=== PATIENT | male | born 1995 ===

== ENCOUNTER 2017-11-05 13:07 | Emergency (ER) | payer OTHER, BC ==
[2017-11-05 13:36] VITALS: O2SAT 99
--- NOTE | 2017-11-05 14:53 | ED PDOC ---
HPI: Back Time Seen by Provider: 11/05/17 13:36 Chief Complaint (Nursing): Back Pain Chief Complaint (Provider): Back Pain History Per: Patient History/Exam Limitations: no limitations Onset/Duration Of Symptoms: Hrs Quality Of Discomfort: "Pain" Additional Complaint(s): 22 y/o male with a history of back injuries presents to the ED with upper back pain. 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 He felt a sudden onset of pain to his back. Patient denies taking any medications prior to arrival. Denies any fever, chest pain, abdominal pain, radiation, weakness, saddle anesthesia, incontinence, falls, or trauma. PMD: none provided Past Medical History Reviewed: Historical Data, Nursing Documentation, Vital Signs Vital Signs: Last Vital Signs Temp 100.1 F H 11/05/17 13:33 Pulse 111 H 11/05/17 13:33 Resp 18 11/05/17 13:33 BP 125/72 11/05/17 13:33 Pulse Ox 99 11/05/17 13:33 - Medical History PMH: No Chronic Diseases - Surgical History Surgical History: No Surg Hx - Family History Family History: States: No Known Family Hx - Social History Current smoker - smoking cessation education provided: No Ex-Smoker (has not smoked in the last 12 months): No Alcohol: None Drugs: Denies - Home Medications Home Medications: Ambulatory Orders Medication Instructions Recorded Cyclobenzaprine [Cyclobenzaprine 10 mg PO Q8 PRN #12 tab 11/05/17 HCl] Meloxicam [Mobic] 15 mg PO DAILY PRN #10 tab 11/05/17 - Allergies Allergies/Adverse Reactions: Allergies Allergy/AdvReac Type Severity Reaction Status Date / Time No Known Allergies Allergy Verified 11/05/17 13:33 Review of Systems ROS Statement: Except As Marked, All Systems Reviewed And Found Negative Constitutional: Negative for: Fever, Weakness, Other (falls or trauma) Cardiovascular: Negative for: Chest Pain Gastrointestinal: Positive for: Other. Negative for: Abdominal Pain Genitourinary Male: Negative for: Incontinence Musculoskeletal: Positive for: Back Pain. Negative for: Other (radiation to back) Neurological: Negative for: Other (saddle anesthesia) Physical Exam - Reviewed Nursing Documentation Reviewed: Yes Vital Signs Reviewed: Yes - Physical Exam Comments: GENERAL APPEARANCE: Patient is awake, alert, oriented x 3, in no acute distress. Resting comfortably talking on cell phone. mbulatory in ed SKIN: Warm, dry; (-) cyanosis. EYES: (-) conjunctival pallor. ENMT: Mucous membranes moist. NECK: (-) tenderness, (-) stiffness, (-) lymphadenopathy. CHEST AND RESPIRATORY: (-) rales, (-) rhonchi, (-) wheezes; breath sounds equal bilaterally. HEART AND CARDIOVASCULAR: (-) irregularity; (-) murmur, (-) gallop. ABDOMEN AND GI: Soft; (-) tenderness; (-) palpable mass. BACK: (+) midline tenderness to the proximal thoracic spine an distal spine (- ) direct bony tenderness, (-) deformity (-) palpable bone in defect. (-) relying skin changes EXTREMITIES: (+) equal entry level financial analyst strength, (+) normal gait, (-) deformity. Distal pulses good bilaterally. NEURO AND PSYCH: Mental status as above. Intact sensation bilaterally; normal strength in extension of the knees, plantar and dorsiflexion of the toes. DTRs symmetric. - ECG O2 Sat by Pulse Oximetry: 99 (RA) Pulse Ox Interpretation: Normal Medical Decision Making Medical Decision Making: Time: 13:33 Impression: acute back pain/strain Plan: * Flexiril 10 mg PO (Not driving home) * Toradol 60 mg IM * Thoracic spine x-ray * Re-evaluation 1615 XR reviewed, radiology report follows HISTORY: pain COMPARISON: No prior. FINDINGS: BONES: Alignment maintained. No fracture. DISC SPACES: Normal. SOFT TISSUES: Normal. OTHER FINDINGS: None. IMPRESSION: Normal radiographs of the thoracic spine. On re-evaluation, patient reports improvement of symptoms. On exam, patient remains AAOx3, in no acute distress. Ambulatory in ED without difficulty. On exam, neck is supple, lungs CTA, cardiac RRR, abdomen is soft and non-tender, neuro exam shows no focal findings. Repeat HR: 91 VSS, stable for discharge. Diagnostic results d/w the patient in great detail. Dx of acute back pain/ strain d/w the patient. Based on history, exam and diagnostic results plan will be for discharge and outpatient follow up. Advised to follow up with primary care physician in 1-2 days without fail. Advised to take medication as prescribed. Return to the emergency room at any time for any new or worsening symptoms. Patient states he fully agrees with and understands discharge instructions. States that he agrees with the plan and disposition. Verbalized and repeated discharge instructions and plan. I have given the patient opportunity to ask any additional questions. Scribe Attestation: Documented by Trevon Rosales acting as a scribe Laney Stanley PA-C. Scribe Attestation: All medical record entries made by the Scribe were at my direction and personally dictated by me. I have reviewed the chart and agree that the record accurately reflects my personal performance of the history, physical exam, medical decision making, and the department course for this patient. I have also personally directed, reviewed, and agree with the discharge instructions and disposition. Disposition - Clinical Impression Clinical Impression: Back pain, Upper back strain - Patient ED Disposition Is Patient to be Admitted: No Counseled Patient/Family Regarding: Studies Performed, Diagnosis, Need For Followup, Rx Given - Disposition Referrals: Perez Knox III, MD [Staff Provider] - [facility] [Outside] Disposition: Routine/Home Disposition Time: 16:20 Condition: STABLE Additional Instructions: FOLLOW UP WITH PMD/ORTHO/CLINIC FOR FURTHER EVALUATION. RETURN TO ED WITH ANY NEW OR WORSENING SYMPTOMS. Prescriptions: Cyclobenzaprine [Cyclobenzaprine HCl] 10 mg PO Q8 PRN #12 tab PRN Reason: Muscle Spasm Meloxicam [Mobic] 15 mg PO DAILY PRN #10 tab PRN Reason: Pain, Moderate (4-7) Instructions: Muscle Strain, Upper Back Pain (DC), Back Exercises Forms: [employer] (Mal[place]ian), [facility] ED School/Work Excuse Print Language: [place] - POA Present On Arrival: None
--- NOTE | 2017-11-05 15:49 | RAD ---
HISTORY: pain COMPARISON: No prior. FINDINGS: BONES: Alignment maintained. No fracture. DISC SPACES: Normal. SOFT TISSUES: Normal. OTHER FINDINGS: None. IMPRESSION: Normal radiographs of the thoracic spine.
[2017-11-05 16:39] VITALS: BP 127/81; PULSE 91; RESP 16; TEMP 98.4
== END 2017-11-05 16:48 | disposition home or self-care (01) ==
LOC: H.ER 13:07
DX: S23.3XXA Sprain of ligaments of thoracic spine, initial encounter (principal); X50.9XXA Other and unspecified overexertion or strenuous movements or postures, initial encounter; Y99.0 Civilian activity done for income or pay; Z87.891 Personal history of nicotine dependence
CPT/HCPCS: 72070; 96372; 99283; J1885